=== PATIENT | male | born 2000 | race Caucasian/White ===

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

== ENCOUNTER 2022-06-02 11:59 | Emergency (ER) | payer SELFPAY ==
[2022-06-02 13:40] LABS: Hemoglobin 15.5 g/dL (14.0-18.0); Mean Corpuscular HGB CONC 33.5 g/dL (32.0-36.0); Mean Corpuscular Hemoglobin 31.9 pg (25.0-35.0); Mean Corpuscular Volume 95.2 fL (78.0-98.0); Mean Platelet Volume 8.9 fL (7.4-10.4); Platelet Count 153 thou/uL (130-400); RBC Distribution Width 12.1 % (11.5-14.5); Red Blood Cell (RBC) Count 4.85 mill/uL (4.00-5.20); White Blood Cell (WBC) Count 6.5 thou/uL (4.8-10.8)
[2022-06-02 14:03] LABS: ALT (SGPT) 10 U/L (8-55); AST (SGOT) 13 U/L (5-34); Albumin 4.8 g/dL (3.5-5.0); Alkaline Phosphatase 63 U/L (50-130); Anion Gap 13 mmol/L (10-20); BUN (Urea Nitrogen) 10 mg/dL (8.9-20.6); Calc. Creatinine Clearance 0 mL/min (70-130); Calcium 9.6 mg/dL (7.8-10.44); Carbon Dioxide 25 mmol/L (22-29); Chloride 103 mmol/L (98-107); Eosinophils 3 % (0-10); Estimated GFR 126; Globulin 2.5 g/dL (2.4-3.5); Glucose 92 mg/dL (70-105); Lymphocytes 54 % (28-48); MDiff Complete? YES; Monocytes 4 % (0-4); Neutrophil 33 % (31-61); Platelet Morphology Comment Appears Adequate; Potassium 4.2 mmol/L (3.5-5.1); Protein, Total 7.3 g/dL (6.0-8.3); RBC Morphology Normal; Reactive Lymphocytes 6 % (0-10); Sodium 137 mmol/L (136-145)
[2022-06-02] MEDS ORDERED: Midazolam HCl 2 mg/2 ml Vial ONE (14:19)
[2022-06-02] MEDS ORDERED: Lidocaine 1%/Epinephrine 1:100K 10 ML VIAL IJ SCH (14:30)
== END 2022-06-02 15:22 | disposition home or self-care (01) ==
LOC: ERS 11:59
DX: J93.9 Pneumothorax, unspecified (principal); F17.210 Nicotine dependence, cigarettes, uncomplicated
CPT/HCPCS: 71045; 80053; 85025; 93005; 96374; J2250

== ENCOUNTER 2022-06-07 12:52 | Outpatient (CLI) | payer SELFPAY | END 2022-06-07 12:53 | disposition home or self-care (01) | LOC: RAD 12:52 | PROVIDERS: ATTEND Thoracic Surgery (Cardiothoracic Vascular Surgery) | DX: J93.9 Pneumothorax, unspecified (principal) | CPT/HCPCS: 71046 ==

== ENCOUNTER 2022-06-07 15:18 | Inpatient (IN) | payer SELFPAY ==
[2022-06-07] MEDS: Acetaminophen 325 MG TAB PO PRN (19:47)
[2022-06-07] MEDS: traMADol HCl 50 MG TAB PO PRN (19:48)
[2022-06-07 19:57] VITALS: BMI 18.1
[2022-06-08] MEDS: traMADol HCl 50 MG TAB PO PRN ×3 (04:30→19:27)
[2022-06-08] MEDS: Enoxaparin Sodium 40 MG/0.4 ML SYRINGE SC SCH (08:51)
[2022-06-08] MEDS: Acetaminophen 325 MG TAB PO PRN ×2 (08:51→23:16)
[2022-06-09] MEDS: traMADol HCl 50 MG TAB PO PRN ×3 (02:28→19:16)
[2022-06-09] MEDS: Enoxaparin Sodium 40 MG/0.4 ML SYRINGE SC SCH (08:54)
[2022-06-10] MEDS: traMADol HCl 50 MG TAB PO PRN ×3 (06:16→17:11)
[2022-06-10] MEDS: Enoxaparin Sodium 40 MG/0.4 ML SYRINGE SC SCH (09:09)
[2022-06-10] MEDS: Acetaminophen 325 MG TAB PO PRN (15:01)
[2022-06-11] MEDS: traMADol HCl 50 MG TAB PO PRN ×4 (05:18→23:51)
[2022-06-11] MEDS ORDERED: fentaNYL Citrate/PF 100 MCG/2 ML SYRINGE ONE ×2 (06:41→06:42)
[2022-06-11] MEDS ORDERED: Midazolam HCl 2 mg/2 ml Vial ONE (06:42)
[2022-06-11] MEDS ORDERED: SUGAMMADEX SODIUM 200 MG/2 ML VIAL ONE (07:01)
[2022-06-11] MEDS ORDERED: Lidocaine 2% Jelly 5 ML TUBE ONE (07:01)
[2022-06-11] MEDS ORDERED: Sodium Chloride 0.9% 100 ML ONE (07:15)
[2022-06-11] MEDS ORDERED: CEFAZOLIN 2 GM VIAL ONE (07:15)
[2022-06-11] MEDS ORDERED: Rocuronium Bromide 10 MG/ML (10ML VIAL) ONE (07:23)
[2022-06-11] MEDS ORDERED: Dexamethasone 20 MG/5 ML VIAL ONE (07:23)
[2022-06-11] MEDS ORDERED: Lidocaine 1% MPF 2 ML VIAL ONE (07:23)
[2022-06-11] MEDS ORDERED: Ondansetron PF 4 MG/2 ML Vial ONE (07:23)
[2022-06-11] MEDS ORDERED: PROPOFOL 200 MG/20 ML VIAL ONE (07:23)
[2022-06-11] MEDS ORDERED: Ketorolac Tromethamine 30 MG/ML VIAL ONE (07:23)
[2022-06-11] MEDS ORDERED: ePHEDrine 50 MG/ML VIAL ONE (07:23)
[2022-06-11] MEDS ORDERED: CEFAZOLIN 2 GM in Sodium Chloride 0.9% 100 ML IVPB SCH (07:30)
[2022-06-11] MEDS ORDERED: Bupivacaine HCl 0.5%/Epinephrine 1:200,000/PF 30 ml Vial ONE (08:21)
[2022-06-11] MEDS ORDERED: Meperidine HCl/PF 25 MG/ML VIAL SLOW IVP PRN (08:43)
[2022-06-11] MEDS ORDERED: HYDROmorphone 2 MG/ML VIAL SLOW IVP PRN (08:43)
[2022-06-11] MEDS ORDERED: Promethazine HCl 25 MG/ML VIAL IM PRN (08:43)
[2022-06-11] MEDS ORDERED: Ondansetron HCl/PF 4 MG/2 ML Vial IVP PRN (08:43)
[2022-06-11] MEDS ORDERED: Promethazine HCl 25 MG/ML VIAL IVPB PRN (08:43)
[2022-06-11] MEDS ORDERED: Fentanyl 100 MCG/2 ML VIAL SLOW IVP PRN (09:17)
[2022-06-11] MEDS: Enoxaparin Sodium 40 MG/0.4 ML SYRINGE SC SCH (10:45)
[2022-06-11] MEDS: CEFAZOLIN 2 GM in Sodium Chloride 0.9% 100 ML IVPB SCH ×2 (15:23→23:51)
[2022-06-11] MEDS: Acetaminophen 325 MG TAB PO PRN (21:01)
[2022-06-12] MEDS: traMADol HCl 50 MG TAB PO PRN ×3 (06:45→20:18)
[2022-06-12] MEDS: CEFAZOLIN 2 GM in Sodium Chloride 0.9% 100 ML IVPB SCH ×3 (08:37→23:14)
[2022-06-12] MEDS: Polyethylene Glycol 3350 17 GM Packet PO SCH (08:39)
[2022-06-12] MEDS: Enoxaparin Sodium 40 MG/0.4 ML SYRINGE SC SCH (08:47)
[2022-06-12] MEDS: Acetaminophen 325 MG TAB PO PRN ×2 (08:53→17:51)
[2022-06-13] MEDS: traMADol HCl 50 MG TAB PO PRN ×3 (04:54→18:25)
[2022-06-13] MEDS: CEFAZOLIN 2 GM in Sodium Chloride 0.9% 100 ML IVPB SCH ×3 (08:27→23:42)
[2022-06-13] MEDS: Acetaminophen 325 MG TAB PO PRN ×2 (08:27→15:08)
[2022-06-13] MEDS: Polyethylene Glycol 3350 17 GM Packet PO SCH (08:31)
[2022-06-13] MEDS: Enoxaparin Sodium 40 MG/0.4 ML SYRINGE SC SCH (08:31)
[2022-06-14] MEDS: traMADol HCl 50 MG TAB PO PRN ×2 (07:03→20:51)
[2022-06-14] MEDS: CEFAZOLIN 2 GM in Sodium Chloride 0.9% 100 ML IVPB SCH ×3 (09:44→23:56)
[2022-06-14] MEDS: Enoxaparin Sodium 40 MG/0.4 ML SYRINGE SC SCH (09:45)
[2022-06-14] MEDS: Polyethylene Glycol 3350 17 GM Packet PO SCH (09:46)
[2022-06-15] MEDS: Enoxaparin Sodium 40 MG/0.4 ML SYRINGE SC SCH (08:00)
[2022-06-15] MEDS: Polyethylene Glycol 3350 17 GM Packet PO SCH (08:00)
[2022-06-15] MEDS: CEFAZOLIN 2 GM in Sodium Chloride 0.9% 100 ML IVPB SCH ×2 (08:00→15:30)
[2022-06-15] MEDS: traMADol HCl 50 MG TAB PO PRN ×3 (08:01→22:29)
[2022-06-16] MEDS: CEFAZOLIN 2 GM in Sodium Chloride 0.9% 100 ML IVPB SCH ×2 (00:15→08:39)
[2022-06-16] MEDS: Enoxaparin Sodium 40 MG/0.4 ML SYRINGE SC SCH (08:39)
[2022-06-16] MEDS: Polyethylene Glycol 3350 17 GM Packet PO SCH (08:39)
[2022-06-17 08:01] VITALS: BP 115/63; TEMP 97.9
[2022-06-17] MEDS: Enoxaparin Sodium 40 MG/0.4 ML SYRINGE SC SCH (09:07)
[2022-06-17] MEDS: Polyethylene Glycol 3350 17 GM Packet PO SCH (09:07)
== END 2022-06-17 10:30 | disposition home or self-care (01) | DRG 165 ==
LOC: ERS 15:18 → SJJU 16:30
PROVIDERS: ADMIT Thoracic Surgery (Cardiothoracic Vascular Surgery); ATTEND Thoracic Surgery (Cardiothoracic Vascular Surgery)
PROC: 0B5P4ZZ Destruction of Left Pleura, Percutaneous Endoscopic Approach (ICD-10-PCS; principal; 2022-06-11)
PROC: 0BQG4ZZ Repair Left Upper Lung Lobe, Percutaneous Endoscopic Approach (ICD-10-PCS; 2022-06-11)
DX: J93.83 Other pneumothorax (principal); J93.82 Other air leak; Z98.890 Other specified postprocedural states; Z20.822 Contact with and (suspected) exposure to COVID-19
CPT/HCPCS: 71045; 71250; 88307; A4649; J0690; J1100; J1885; J2250; J2405; J2704; J3490; U0003; U0005

== ENCOUNTER 2022-07-05 10:09 | Outpatient (CLI) | payer SELFPAY | END 2022-07-05 10:10 | disposition home or self-care (01) | LOC: RAD 10:09 | PROVIDERS: ATTEND Thoracic Surgery (Cardiothoracic Vascular Surgery) | DX: J93.9 Pneumothorax, unspecified (principal) | CPT/HCPCS: 71046 ==

== ENCOUNTER 2023-10-01 13:37 | Inpatient (IN) | payer SELFPAY ==
[2023-10-01 14:04] LABS: #Basophils 0.1 thou/uL (0.0-0.2); #Eosinphils 0.3 thou/uL (0.0-0.7); #Monocytes 0.5 thou/uL (0.11-0.59); #Neutrophils 1.6 thou/uL (1.40-6.50); %Basophils 1.3 % (0.0-1.0); %Eosinophils 5.5 % (0.0-10.0); %Lymphocytes 58.3 % (21.0-51.0); %Monocytes 8.1 % (0.0-10.0); %Neutrophils 26.6 % (42.0-75.0); Hematocrit 46.1 % (42.0-52.0); Hemoglobin 15.8 g/dL (14.0-18.0); Mean Corpuscular HGB CONC 34.3 g/dL (32.0-36.0); Mean Corpuscular Hemoglobin 31.1 pg (27.0-31.0); Mean Corpuscular Volume 90.7 fl (78.0-98.0); Mean Platelet Volume 11.1 fL (7.4-10.4); Platelet Count 175 10x3/uL (130-400); RBC Distribution Width 12.6 % (11.5-14.5); Red Blood Cell (RBC) Count 5.08 mill/uL (4.70-6.10); White Blood Cell (WBC) Count 6.1 10x3/uL (4.8-10.8)
[2023-10-01 14:29] LABS: ALT (SGPT) 7 U/L (8-55); AST (SGOT) 12 U/L (5-34); Albumin 4.7 g/dL (3.5-5.0); Alkaline Phosphatase 61 U/L (40-110); Anion Gap 12 mmol/L (10-20); BUN (Urea Nitrogen) 6 mg/dL (8.9-20.6); Bilirubin, Total 0.7 mg/dL (0.2-1.2); Calc. Creatinine Clearance 0 mL/min (70-130); Calcium 9.4 mg/dL (7.8-10.44); Carbon Dioxide 24 mmol/L (22-29); Chloride 105 mmol/L (98-107); Estimated GFR 104; Globulin 2.5 g/dL (2.4-3.5); Glucose 103 mg/dL (70-105); Potassium 4.4 mmol/L (3.5-5.1); Protein, Total 7.2 g/dL (6.0-8.3); Sodium 137 mmol/L (136-145)
[2023-10-01 14:33] LABS: Troponin I Less than 0.010 ng/mL (< 0.028)
[2023-10-01] MEDS ORDERED: Morphine 4 MG/ML VIAL ONE (21:06)
[2023-10-01] MEDS ORDERED: Acetaminophen 325 MG TAB PO PRN ×2 (22:15→22:23)
[2023-10-01] MEDS ORDERED: Ondansetron ODT 4 MG TAB SL PRN (22:15)
[2023-10-01] MEDS ORDERED: Ondansetron PF 4 MG/2 ML Vial IVP PRN (22:15)
[2023-10-01 22:30] VITALS: BMI 18.8
[2023-10-01] MEDS: HYDROcodone/Acetaminophen 5/325 mg Tablet PO PRN (22:35)
[2023-10-01] MEDS: Lactated Ringer's 1,000 ML IV SCH (23:51)
[2023-10-02] MEDS: HYDROcodone/Acetaminophen 5/325 mg Tablet PO PRN ×3 (06:08→23:19)
[2023-10-02] MEDS ORDERED: Midazolam HCl 2 mg/2 ml Vial ONE (10:54)
[2023-10-02] MEDS ORDERED: SUGAMMADEX SODIUM 200 MG/2 ML VIAL ONE (10:54)
[2023-10-02] MEDS ORDERED: Fentanyl 250 MCG/5 ML VIAL ONE (10:54)
[2023-10-02] MEDS ORDERED: PROPOFOL 20 ML ONE (10:54)
[2023-10-02] MEDS ORDERED: Lidocaine 2% PF 100 mg/5 ml Syringe ONE (10:56)
[2023-10-02] MEDS ORDERED: Dexamethasone 20 MG/5 ML VIAL ONE (10:57)
[2023-10-02] MEDS ORDERED: Rocuronium Bromide 10 MG/ML (10ML VIAL) ONE (10:57)
[2023-10-02] MEDS ORDERED: Ondansetron PF 4 MG/2 ML Vial ONE (10:57)
[2023-10-02] MEDS ORDERED: PHENYLEPHRINE-NS 100 MCG/ML 10 ML SYRINGE ONE (10:59)
[2023-10-02] MEDS ORDERED: Bupivacaine PF 0.5% 30 ML VIAL ONE (11:39)
[2023-10-02] MEDS ORDERED: EPINEPHrine 1 MG/ML VIAL ONE (11:39)
[2023-10-02] MEDS ORDERED: Sodium Chloride 0.9% 100 ML ONE (11:45)
[2023-10-02] MEDS ORDERED: CEFAZOLIN 2 GM VIAL ONE (11:45)
[2023-10-02] MEDS ORDERED: Ketorolac Tromethamine 30 MG (1 mL) VIAL ONE (13:23)
[2023-10-02] MEDS ORDERED: fentaNYL 50 mcg/mL 1 mL Vial ONE (14:10)
[2023-10-02] MEDS ORDERED: fentaNYL 50 mcg/mL 1 mL Vial SLOW IVP PRN (14:36)
[2023-10-02] MEDS: Ketorolac Tromethamine 30 MG (1 mL) VIAL IVP SCH ×2 (17:06→23:20)
[2023-10-02] MEDS: Lactated Ringer's 1,000 ML IV SCH (21:06)
[2023-10-03] MEDS: HYDROcodone/Acetaminophen 5/325 mg Tablet PO PRN (03:30)
[2023-10-03] MEDS: Ketorolac Tromethamine 30 MG (1 mL) VIAL IVP SCH ×3 (05:08→17:36)
[2023-10-04] MEDS: Ketorolac Tromethamine 30 MG (1 mL) VIAL IVP SCH ×3 (00:13→12:13)
[2023-10-04] MEDS: HYDROcodone/Acetaminophen 5/325 mg Tablet PO PRN (12:12)
[2023-10-04 13:24] VITALS: TEMP 97.8
[2023-10-04 13:25] VITALS: BP 96/61
== END 2023-10-04 14:45 | disposition home or self-care (01) | DRG 165 ==
LOC: ERS 13:37 → SJJU 19:42 → OBSVTOIN 10-02 11:10
PROVIDERS: ADMIT Thoracic Surgery (Cardiothoracic Vascular Surgery); ATTEND Thoracic Surgery (Cardiothoracic Vascular Surgery)
PROC: 3E033XZ Introduction of Vasopressor into Peripheral Vein, Percutaneous Approach (ICD-10-PCS; principal; 2023-10-02)
PROC: 0B5N4ZZ Destruction of Right Pleura, Percutaneous Endoscopic Approach (ICD-10-PCS; 2023-10-02)
PROC: 0BQC4ZZ Repair Right Upper Lung Lobe, Percutaneous Endoscopic Approach (ICD-10-PCS; 2023-10-02)
DX: J93.11 Primary spontaneous pneumothorax (principal); Z98.890 Other specified postprocedural states; F17.210 Nicotine dependence, cigarettes, uncomplicated
CPT/HCPCS: 71045; 71250; 80053; 84484; 85025; 88307; 93005; 96374; A4649; G0378; J0171; J1100; J1885; J2001; J2250; J2270; J2405; J2704; J3010; J3490; J7120; S0020

== ENCOUNTER 2023-10-15 13:01 | Outpatient (CLI) | payer SELFPAY | END 2023-10-15 13:02 | disposition home or self-care (01) | LOC: RAD 13:01 | PROVIDERS: ATTEND Thoracic Surgery (Cardiothoracic Vascular Surgery) | DX: J93.9 Pneumothorax, unspecified (principal) | CPT/HCPCS: 71046 ==